=== PATIENT | male | born 1965 | race Caucasian/White ===

== ENCOUNTER 2016-07-09 18:19 | Emergency (ER) | payer BC ==
[~2016-07-09] VITALS: Ht 188 cm; Wt 145.4 kg
[~2016-07-09 18:19] MED LIST: ALDACTONE25 MG PO; AMLODIPINE BESYL5 MG PO; AZILECT1 MG PO; ERGOCALCIF50000 UNIT PO; HYDROCHLOROTHIA25 MG PO; IBUPROFEN200 M1 PO; LISINOPRIL20 MG PO; LORCET 5-325 M1 EACH PO; MIRAPEX0.25 MG PO; NORVASC5 MG PO; PRAMIPEXOLE D0.25 MG PO; PRILOSEC20 MG PO; PRINIVIL20 MG PO; ZESTRIL40 MG PO; ZOFRAN4 MG PO
[2016-07-09] MEDS ORDERED: CARBIDOPA/LEVO1 EACH PO (18:47)
[2016-07-09] MEDS ORDERED: SERTRALINE HCL50 MG PO (18:47)
[2016-07-09] MEDS ORDERED: ALPRAZOLAM0.25 M2 PO (18:48)
[2016-07-09] MEDS ORDERED: OXYCODONE HCL5 MG PO (18:49)
[2016-07-09] MEDS ORDERED: FUROSEMIDE80 MG PO (18:49)
[2016-07-09] MEDS ORDERED: ONDANSETRON HCL4 MG PO (18:52)
[2016-07-09 18:56] LABS: HEMATOCRIT 43.5 % (38.0-50.0); MCH 30.6 PG (29.0-34.0); MCHC 33.3 G/DL (30.0-36.0); MCV 91.8 FL (86-99); MEAN PLAT.VOLUME 8.8 uM^3 (9.0-12.4); PLATELET COUNT 182 K/uL (156-360); RBC DIS.WIDTH-CV 12.7 % (11.8-14.6); RED BLOOD COUNT 4.74 M/uL (4.00-5.50); WHITE BLOOD COUNT 6.2 K/uL (4.1-10.2)
[2016-07-09 19:04] LABS: CHLORIDE 107 mEq/L (99-109); SODIUM 142 mEq/L (136-147)
[2016-07-09 19:06] LABS: GLUCOSE 105 mg/dL (70-99)
[2016-07-09 19:07] LABS: ANION GAP 8 MEQ/L (2-14)
[2016-07-09 19:08] LABS: TOTAL BILIRUBIN 0.4 mg/dL (0.0-1.0)
[2016-07-09 19:09] LABS: ALKALINE PHOSPHATASE 67 IU/L (3-129)
[2016-07-09 19:10] LABS: GFR ESTIMATE (CALCULATED) > 59 mL/min/
[2016-07-09 19:11] LABS: UREA NITROGEN (BUN) 19 mg/dL (9-23)
[2016-07-09 19:18] LABS: TROP-I INTERPRETATION NEGATIVE; TROPONIN-I < 0.01 ng/mL (0.0-0.30)
[2016-07-09] MEDS ORDERED: CATAPRES0.1 MG PO (20:23)
[2016-07-09 20:38] VITALS: BP 152/89
== END 2016-07-09 20:39 | disposition home or self-care (01) ==
LOC: EME 18:19
PROVIDERS: Nurse Practitioner Family
DX: I10 Essential (primary) hypertension (principal); R51 Headache; R11.0 Nausea; R06.02 Shortness of breath; G20 Parkinson's disease
CPT/HCPCS: 71020; 80053; 83880; 84484; 85027; 93005; 99281; 99285

== ENCOUNTER 2016-10-25 13:54 | Emergency (ER) | payer BC ==
[~2016-10-25] VITALS: Ht 188 cm; Wt 134.8 kg
[~2016-10-25 13:54] MED LIST changes: +ALPRAZOLAM0.25 M2 PO; +CARBIDOPA/LEVO1 EACH PO; +CATAPRES0.1 MG PO; +FUROSEMIDE80 MG PO; +ONDANSETRON HCL4 MG PO; +OXYCODONE HCL5 MG PO; +SERTRALINE HCL50 MG PO
[2016-10-25 14:21] LABS: POINT-OF-CARE METER ID UU14100415
[2016-10-25 14:30] LABS: HEMATOCRIT 49.6 % (38.0-50.0); MCH 31.1 PG (29.0-34.0); MCHC 33.9 G/DL (30.0-36.0); MCV 91.7 FL (86-99); MEAN PLAT.VOLUME 9.4 uM^3 (9.0-12.4); PLATELET COUNT 224 K/uL (156-360); RBC DIS.WIDTH-CV 12.7 % (11.8-14.6); RED BLOOD COUNT 5.41 M/uL (4.00-5.50); WHITE BLOOD COUNT 7.1 K/uL (4.1-10.2)
[2016-10-25 14:41] LABS: CHLORIDE 101 mEq/L (99-109); POTASSIUM 3.9 mEq/L (3.7-5.4); SODIUM 142 mEq/L (136-147)
[2016-10-25 14:42] LABS: GLUCOSE 103 mg/dL (70-99)
[2016-10-25 14:44] LABS: ANION GAP 16 MEQ/L (2-14)
[2016-10-25 14:46] LABS: GFR ESTIMATE (CALCULATED) 57 mL/min/
[2016-10-25 14:47] LABS: UREA NITROGEN (BUN) 27 mg/dL (9-23)
[2016-10-25 14:51] LABS: TROP-I INTERPRETATION NEGATIVE; TROPONIN-I < 0.01 ng/mL (0.0-0.30)
[2016-10-25 16:55] VITALS: BP 156/106
== END 2016-10-25 16:57 | disposition home or self-care (01) ==
LOC: EME 13:54
PROVIDERS: Emergency Medicine
DX: E86.0 Dehydration (principal); R55 Syncope and collapse; I10 Essential (primary) hypertension
CPT/HCPCS: 80048; 82948; 84484; 85027; 93005; 99281; 99285; J2405; J7030

== ENCOUNTER 2016-12-07 09:40 | Emergency (ER) | payer BC ==
[~2016-12-07] VITALS: Ht 188 cm; Wt 148.5 kg
[2016-12-07 11:19] LABS: EOSINOPHIL (%) 0.7 % (0-5); EOSINOPHIL COUNT 0.1 K/uL (0-0.3); HEMATOCRIT 42.4 % (38.0-50.0); IMMATURE GRANULOCYTE (%) 0.1 % (0.0-0.7); INSTRUMENT ABS NEUTROPHIL CT 4.4 K/uL; LYMPHOCYTE COUNT 1.8 K/uL (1.0-2.8); MCH 31.4 PG (29.0-34.0); MCHC 33.7 G/DL (30.0-36.0); MCV 93.2 FL (86-99); MEAN PLAT.VOLUME 9.4 uM^3 (9.0-12.4); MONOCYTE (%) 7.3 % (3-12); MONOCYTE COUNT 0.5 K/uL (0-0.8); NEUTROPHIL (%) 65.4 % (45-76); NEUTROPHIL COUNT 4.4 K/uL (1.8-6.4); PLATELET COUNT 208 K/uL (156-360); RBC DIS.WIDTH-CV 12.5 % (11.8-14.6); RBC DIS.WIDTH-SD 43.2 % (39-53); RED BLOOD COUNT 4.55 M/uL (4.00-5.50); WHITE BLOOD COUNT 6.8 K/uL (4.1-10.2)
[2016-12-07 11:30] LABS: CHLORIDE 105 mEq/L (99-109); SODIUM 140 mEq/L (136-147)
[2016-12-07 11:31] LABS: GLUCOSE 96 mg/dL (70-99)
[2016-12-07 11:33] LABS: ANION GAP 9 MEQ/L (2-14)
[2016-12-07 11:35] LABS: GFR ESTIMATE (CALCULATED) > 59 mL/min/
[2016-12-07 11:36] LABS: UREA NITROGEN (BUN) 19 mg/dL (9-23)
[2016-12-07 13:38] VITALS: BP 133/79
== END 2016-12-07 13:43 | disposition home or self-care (01) ==
LOC: EME 09:40
PROVIDERS: Emergency Medicine
DX: I10 Essential (primary) hypertension (principal); G20 Parkinson's disease; Z98.84 Bariatric surgery status
CPT/HCPCS: 80048; 85025; 99281; 99284

== ENCOUNTER 2017-06-15 07:14 | Emergency (ER) | payer OTHER ==
[~2017-06-15] VITALS: Ht 188 cm; Wt 145.1 kg
[2017-06-15 07:38] LABS: BASOPHIL (%) 0.2 % (0-1); EOSINOPHIL (%) 0.1 % (0-5); HEMATOCRIT 51.9 % (38.0-50.0); HEMOGLOBIN 17.8 G/DL (12.5-16.6); IMMATURE GRANULOCYTE (%) 0.4 % (0.0-0.7); LYMPHOCYTE (%) 7.3 % (15-42); MCH 31.9 PG (29.0-34.0); MCHC 34.3 G/DL (30.0-36.0); MONOCYTE (%) 3.8 % (3-12); MONOCYTE COUNT 0.5 K/uL (0-0.8); NEUTROPHIL (%) 88.2 % (45-76); NEUTROPHIL COUNT 12.4 K/uL (1.8-6.4); PLATELET COUNT 250 K/uL (156-360); RBC DIS.WIDTH-CV 12.3 % (11.8-14.6); RBC DIS.WIDTH-SD 42.1 % (39-53); RED BLOOD COUNT 5.58 M/uL (4.00-5.50); WHITE BLOOD COUNT 14.1 K/uL (4.1-10.2)
[2017-06-15 07:50] LABS: ALBUMIN 4.6 g/dL (3.2-4.8); CHLORIDE 104 mEq/L (99-109); POTASSIUM 4.2 mEq/L (3.7-5.4); SODIUM 141 mEq/L (136-147)
[2017-06-15 07:52] LABS: GLUCOSE 172 mg/dL (70-99); TOTAL PROTEIN 8.1 g/dL (6.4-8.3)
[2017-06-15 07:54] LABS: TOTAL BILIRUBIN 0.5 mg/dL (0.0-1.0)
[2017-06-15 07:56] LABS: ALKALINE PHOSPHATASE 89 IU/L (3-129); CREATININE 1.1 mg/dL (0.6-1.3); GFR ESTIMATE (CALCULATED) > 59 mL/min/ (58.99-99999)
[2017-06-15 07:57] LABS: AST (GOT) 33 IU/L (2-34); UREA NITROGEN (BUN) 18 mg/dL (9-23)
[2017-06-15 07:59] LABS: ALT (GPT) 26 IU/L (3-49); LIPASE 22 U/L (1.0-51.0)
[2017-06-15 12:17] VITALS: BP 183/117
== END 2017-06-15 12:18 | disposition short-term general hospital (02) ==
LOC: EME 07:14
PROVIDERS: Emergency Medicine
DX: K56.699 Other intestinal obstruction unspecified as to partial versus complete obstruction (principal); K57.30 Diverticulosis of large intestine without perforation or abscess without bleeding; Z98.84 Bariatric surgery status; K44.9 Diaphragmatic hernia without obstruction or gangrene; Z90.49 Acquired absence of other specified parts of digestive tract; K42.9 Umbilical hernia without obstruction or gangrene; I10 Essential (primary) hypertension
CPT/HCPCS: 74177; 80053; 83690; 85025; 99281; 99285; J2270; J2405; J7030

== ENCOUNTER 2017-06-29 19:09 | Emergency (ER) | payer OTHER ==
[~2017-06-29] VITALS: Ht 188 cm; Wt 145.6 kg
[2017-06-29 20:31] LABS: HEMATOCRIT 45.4 % (38.0-50.0); HEMOGLOBIN 15.6 G/DL (12.5-16.6); MCH 32.2 PG (29.0-34.0); MCHC 34.4 G/DL (30.0-36.0); MCV 93.8 FL (86-99); PLATELET COUNT 278 K/uL (156-360); RBC DIS.WIDTH-CV 12.4 % (11.8-14.6); RBC DIS.WIDTH-SD 42.6 % (39-53); RED BLOOD COUNT 4.84 M/uL (4.00-5.50); WHITE BLOOD COUNT 7.8 K/uL (4.1-10.2)
[2017-06-29 20:38] LABS: CHLORIDE 106 mEq/L (99-109); POTASSIUM 4.1 mEq/L (3.7-5.4); SODIUM 140 mEq/L (136-147)
[2017-06-29 20:40] LABS: GLUCOSE 99 mg/dL (70-99); TOTAL PROTEIN 7.1 g/dL (6.4-8.3)
[2017-06-29 20:42] LABS: TOTAL BILIRUBIN 0.3 mg/dL (0.0-1.0)
[2017-06-29 20:43] LABS: ALKALINE PHOSPHATASE 62 IU/L (3-129)
[2017-06-29 20:44] LABS: GFR ESTIMATE (CALCULATED) > 59 mL/min/ (58.99-99999)
[2017-06-29 20:45] LABS: AST (GOT) 21 IU/L (2-34); UREA NITROGEN (BUN) 17 mg/dL (9-23)
[2017-06-29 20:47] LABS: ALT (GPT) 22 IU/L (3-49)
[2017-06-29 22:51] LABS: APPEARANCE CLEAR ((CLEAR)); BILIRUBIN NEGATIVE; BLOOD NEGATIVE; COLOR YELLOW ((YELLOW)); GLUCOSE (STRIP) NEGATIVE; KETONES NEGATIVE; LEUKOCYTES TRACE; NITRITE NEGATIVE; PROTEIN (STRIP) NEGATIVE; SPECIFIC GRAVITY 1.029 (1.000-1.030)
[2017-06-29 22:55] LABS: BACTERIA RARE /HPF; EPITHELIAL CELLS RARE /HPF; MUCUS TRACE /LPF; RED BLOOD CELLS 0-5 /HPF (0-5); UCUL ADDED? NO; WHITE BLOOD CELLS 0-5 /HPF (0-5)
[2017-06-30 02:38] LABS: LIPASE 27 U/L (1.0-51.0)
[2017-06-30 03:00] VITALS: BP 167/82
== END 2017-06-30 03:00 | disposition home or self-care (01) ==
LOC: EME 19:09
DX: R10.12 Left upper quadrant pain (principal); G20 Parkinson's disease; Z87.19 Personal history of other diseases of the digestive system; Z98.84 Bariatric surgery status; Z90.49 Acquired absence of other specified parts of digestive tract; Z88.8 Allergy status to other drugs, medicaments and biological substances
CPT/HCPCS: 74177; 80053; 81003; 83690; 85027; 99281; 99285; J2270; J7030

== ENCOUNTER 2017-08-22 15:21 | Emergency (ER) | payer OTHER ==
[~2017-08-22] VITALS: Ht 188 cm; Wt 155.9 kg
[2017-08-22 16:42] LABS: BASOPHIL (%) 0.7 % (0-1); EOSINOPHIL COUNT 0.1 K/uL (0-0.3); HEMOGLOBIN 14.4 G/DL (12.5-16.6); IMMATURE GRANULOCYTE (%) 0.2 % (0.0-0.7); LYMPHOCYTE (%) 22.7 % (15-42); LYMPHOCYTE COUNT 1.3 K/uL (1.0-2.8); MCH 31.7 PG (29.0-34.0); MCHC 34.3 G/DL (30.0-36.0); MCV 92.5 FL (86-99); MONOCYTE COUNT 0.5 K/uL (0-0.8); NEUTROPHIL (%) 66.4 % (45-76); NEUTROPHIL COUNT 3.9 K/uL (1.8-6.4); PLATELET COUNT 210 K/uL (156-360); RBC DIS.WIDTH-CV 12.7 % (11.8-14.6); RBC DIS.WIDTH-SD 43.2 % (39-53); RED BLOOD COUNT 4.54 M/uL (4.00-5.50); WHITE BLOOD COUNT 5.9 K/uL (4.1-10.2)
[2017-08-22 16:55] LABS: CHLORIDE 106 mEq/L (99-109); POTASSIUM 3.8 mEq/L (3.7-5.4); SODIUM 142 mEq/L (136-147)
[2017-08-22 16:57] LABS: GLUCOSE 96 mg/dL (70-99)
[2017-08-22 16:58] LABS: TOTAL PROTEIN 6.9 g/dL (6.4-8.3)
[2017-08-22 16:59] LABS: TOTAL BILIRUBIN 0.8 mg/dL (0.0-1.0)
[2017-08-22 17:00] LABS: SERUM ETHYL ALCOHOL < 10 mg/dL
[2017-08-22 17:01] LABS: ALKALINE PHOSPHATASE 69 IU/L (3-129); CREATININE 0.8 mg/dL (0.6-1.3); GFR ESTIMATE (CALCULATED) > 59 mL/min/ (58.99-99999)
[2017-08-22 17:02] LABS: UREA NITROGEN (BUN) 18 mg/dL (9-23)
[2017-08-22 17:03] LABS: AST (GOT) 18 IU/L (2-34)
[2017-08-22 17:04] LABS: ALT (GPT) 14 IU/L (3-49)
[2017-08-22 19:45] VITALS: BP 151/87
[2017-08-23] MEDS ORDERED: KEFLEX500 MG PO (12:37)
== END 2017-08-22 19:46 | disposition home or self-care (01) ==
LOC: EME 15:21
PROVIDERS: Emergency Medicine
DX: F32.9 Major depressive disorder, single episode, unspecified (principal); F43.21 Adjustment disorder with depressed mood; G20 Parkinson's disease; Z98.84 Bariatric surgery status
CPT/HCPCS: 80053; 81003; 85025; 90839; G0480

== ENCOUNTER 2017-08-23 09:47 | Emergency (ER) | payer OTHER ==
[~2017-08-23] VITALS: Ht 188 cm; Wt 152.5 kg
[2017-08-23 10:41] LABS: BASOPHIL (%) 0.7 % (0-1); EOSINOPHIL (%) 1.3 % (0-5); EOSINOPHIL COUNT 0.1 K/uL (0-0.3); HEMATOCRIT 42.2 % (38.0-50.0); HEMOGLOBIN 14.5 G/DL (12.5-16.6); IMMATURE GRANULOCYTE (%) 0.3 % (0.0-0.7); LYMPHOCYTE (%) 20.6 % (15-42); LYMPHOCYTE COUNT 1.3 K/uL (1.0-2.8); MCH 31.9 PG (29.0-34.0); MCHC 34.4 G/DL (30.0-36.0); MONOCYTE (%) 10.2 % (3-12); MONOCYTE COUNT 0.6 K/uL (0-0.8); NEUTROPHIL (%) 66.9 % (45-76); NEUTROPHIL COUNT 4.1 K/uL (1.8-6.4); PLATELET COUNT 193 K/uL (156-360); RBC DIS.WIDTH-CV 12.8 % (11.8-14.6); RBC DIS.WIDTH-SD 43.8 % (39-53); RED BLOOD COUNT 4.54 M/uL (4.00-5.50); WHITE BLOOD COUNT 6.1 K/uL (4.1-10.2)
[2017-08-23 10:47] LABS: INTER. NORMALIZED RATIO 1.2
[2017-08-23 10:49] LABS: PTT 31.1 SEC (25-37)
[2017-08-23 10:51] LABS: CHLORIDE 105 mEq/L (99-109); POTASSIUM 3.6 mEq/L (3.7-5.4); SODIUM 141 mEq/L (136-147)
[2017-08-23 10:52] LABS: MAGNESIUM 2.2 mg/dL (1.3-2.7)
[2017-08-23 10:53] LABS: GLUCOSE 98 mg/dL (70-99)
[2017-08-23 10:57] LABS: CREATININE 0.8 mg/dL (0.6-1.3); GFR ESTIMATE (CALCULATED) > 59 mL/min/ (58.99-99999)
[2017-08-23 10:58] LABS: UREA NITROGEN (BUN) 20 mg/dL (9-23)
[2017-08-23 11:02] LABS: TROP-I INTERPRETATION NEGATIVE; TROPONIN-I 0.03 ng/mL (0.0-0.30)
[2017-08-23 11:36] LABS: APPEARANCE CLEAR ((CLEAR)); BILIRUBIN NEGATIVE; BLOOD NEGATIVE; COLOR YELLOW ((YELLOW)); GLUCOSE (STRIP) NEGATIVE; KETONES NEGATIVE; LEUKOCYTES MODERATE; NITRITE NEGATIVE; PROTEIN (STRIP) 30; SPECIFIC GRAVITY 1.019 (1.000-1.030); UROBILINOGEN 0.2 MG/DL (0.2-1.0)
[2017-08-23 11:39] LABS: BACTERIA RARE /HPF; EPITHELIAL CELLS RARE /HPF; MUCUS 1+ /LPF; UCUL ADDED? YES
[2017-08-23] MEDS ORDERED: KEFLEX500 MG PO (12:37)
[2017-08-23 12:44] VITALS: BP 150/99
== END 2017-08-23 12:45 | disposition home or self-care (01) ==
LOC: EME 09:47
PROVIDERS: Emergency Medicine
DX: N39.0 Urinary tract infection, site not specified (principal); I10 Essential (primary) hypertension; I25.10 Atherosclerotic heart disease of native coronary artery without angina pectoris; G20 Parkinson's disease; Z98.84 Bariatric surgery status; E66.01 Morbid (severe) obesity due to excess calories; Z68.41 Body mass index [BMI] 40.0-44.9, adult
CPT/HCPCS: 71045; 80048; 81003; 83735; 84484; 85025; 85610; 85730; 87086; 93005; 99281; 99284

== ENCOUNTER 2017-09-04 15:02 | Observation (INO) | payer OTHER ==
[~2017-09-04] VITALS: Ht 188 cm; Wt 147.4 kg
[~2017-09-04 15:02] MED LIST changes: +KEFLEX500 MG PO
[2017-09-04 15:54] LABS: HEMATOCRIT 44.8 % (38.0-50.0); HEMOGLOBIN 15.4 G/DL (12.5-16.6); MCH 32.1 PG (29.0-34.0); MCHC 34.4 G/DL (30.0-36.0); MCV 93.3 FL (86-99); PLATELET COUNT 198 K/uL (156-360); RBC DIS.WIDTH-CV 12.6 % (11.8-14.6); RBC DIS.WIDTH-SD 43.5 % (39-53); WHITE BLOOD COUNT 6.9 K/uL (4.1-10.2)
[2017-09-04 16:24] LABS: CHLORIDE 105 MEQ/L (99-109); POTASSIUM 4.1 MEQ/L (3.7-5.4); SODIUM 141 MEQ/L (136-147)
[2017-09-04 16:29] LABS: CREATININE 0.8 MG/DL (0.6-1.3); GFR ESTIMATE (CALCULATED) > 59 mL/min/ (58.99-99999); GLUCOSE 95 mg/dL (70-99); UREA NITROGEN (BUN) 22 mg/dL (9-23)
[2017-09-04 16:37] LABS: TROP-I INTERPRETATION NEGATIVE; TROPONIN-I < 0.01 ng/mL (0.0-0.30)
[2017-09-04 19:08] LABS: APPEARANCE SL.HAZY ((CLEAR)); BILIRUBIN NEGATIVE; BLOOD SMALL; COLOR YELLOW ((YELLOW)); GLUCOSE (STRIP) NEGATIVE; KETONES 5; LEUKOCYTES NEGATIVE; NITRITE NEGATIVE; PROTEIN (STRIP) 100; SPECIFIC GRAVITY 1.029 (1.000-1.030)
[2017-09-04 19:21] LABS: AMPHETAMINE NEGATIVE (500 ng/mL); BARBITURATES NEGATIVE (200 ng/mL); BENZODIAZEPINES NEGATIVE (150 ng/mL); BUPRENORPHINE NEGATIVE (10 ng/mL); COCAINE NEGATIVE (150 ng/mL); METHADONE NEGATIVE (200 ng/mL); METHAMPHETAMINE NEGATIVE (500 ng/mL); OPIATES (MORPHINE) NEGATIVE (100 ng/mL); OXYCODONE NEGATIVE (100 ng/mL); PHENCYCLIDINE NEGATIVE (25 ng/mL); PROPOXYPHENE NEGATIVE (300 ng/mL); THC CANNABINOIDS NEGATIVE (50 ng/mL); TRICYCLIC ANTIDEPRESSANTS NEGATIVE (300 ng/mL)
[2017-09-04 19:25] LABS: BACTERIA NONE SEEN /HPF; EPITHELIAL CELLS RARE /HPF; MUCUS 2+ /LPF; RED BLOOD CELLS 15-20 /HPF (0-5); UCUL ADDED? NO; WHITE BLOOD CELLS 0-5 /HPF (0-5)
[2017-09-04] MEDS ORDERED: SINEMET 10-1001 EACH PO (20:15)
[2017-09-04] MEDS ORDERED: ADVIL,NUPRIN,M200 MG PO (20:16)
[2017-09-05 00:40] LABS: TROP-I INTERPRETATION NEGATIVE; TROPONIN-I 0.02 ng/mL (0.0-0.30)
[2017-09-05 02:24] VITALS: BP 184/81
[2017-09-05 05:44] LABS: TROP-I INTERPRETATION NEGATIVE; TROPONIN-I < 0.01 ng/mL (0.0-0.30)
[2017-09-05 05:58] LABS: CHLORIDE 103 MEQ/L (99-109); CREATININE 0.8 MG/DL (0.6-1.3); GFR ESTIMATE (CALCULATED) > 59 mL/min/ (58.99-99999); GLUCOSE 84 mg/dL (70-99); POTASSIUM 3.5 MEQ/L (3.7-5.4); SODIUM 140 MEQ/L (136-147); UREA NITROGEN (BUN) 22 mg/dL (9-23)
[2017-09-05 06:08] LABS: HEMATOCRIT 43.8 % (38.0-50.0); HEMOGLOBIN 14.3 G/DL (12.5-16.6); MCH 30.6 PG (29.0-34.0); MCHC 32.6 G/DL (30.0-36.0); MCV 93.8 FL (86-99); PLATELET COUNT 198 K/uL (156-360); RBC DIS.WIDTH-CV 12.7 % (11.8-14.6); RBC DIS.WIDTH-SD 43.8 % (39-53); RED BLOOD COUNT 4.67 M/uL (4.00-5.50); WHITE BLOOD COUNT 6.3 K/uL (4.1-10.2)
[2017-09-05 08:35] VITALS: BP 156/91
[2017-09-05] MEDS ORDERED: APRESOLINE10 MG PO (10:35)
[2017-09-05 11:14] VITALS: BP 179/93
[2017-09-05 16:31] VITALS: BP 172/94
[2017-09-05 19:20] VITALS: BP 167/89
[2017-09-05 23:56] VITALS: BP 165/80
[2017-09-06 03:24] VITALS: BP 139/94
[2017-09-06 07:10] VITALS: BP 184/97
[2017-09-06 12:23] VITALS: BP 162/104
== END 2017-09-06 15:24 ==
LOC: EME 15:02 → EDOF 21:52 → 4SOUTH 21:52 → ENRESERV 21:58 → 4SOUTH 09-05 02:12
PROVIDERS: Emergency Medicine; Hospitalist
DX: I10 Essential (primary) hypertension (principal); R60.0 Localized edema; R26.2 Difficulty in walking, not elsewhere classified; G20 Parkinson's disease; I49.3 Ventricular premature depolarization; R06.02 Shortness of breath; N39.0 Urinary tract infection, site not specified; Z98.84 Bariatric surgery status; Z90.49 Acquired absence of other specified parts of digestive tract; Z80.1 Family history of malignant neoplasm of trachea, bronchus and lung; Z83.3 Family history of diabetes mellitus; Z82.49 Family history of ischemic heart disease and other diseases of the circulatory system
CPT/HCPCS: 71046; 80048; 81003; 84484; 85027; 93005; 93970; 97530 GP; 99281; 99285; G0378; G8978 GP CJ; G8979 GP CI; G8980 CJ; G8987 GO CI; G8987 GO CJ; G8988 CI; G8989 CJ; J0360; J1650

== ENCOUNTER 2017-10-02 16:09 | Emergency (ER) | payer OTHER ==
[~2017-10-02] VITALS: Ht 188 cm; Wt 139.6 kg
[~2017-10-02 16:09] MED LIST changes: +ADVIL,NUPRIN,M200 MG PO; +APRESOLINE10 MG PO; +SINEMET 10-1001 EACH PO
[2017-10-02 17:17] LABS: APPEARANCE CLEAR ((CLEAR)); BILIRUBIN NEGATIVE; BLOOD NEGATIVE; COLOR YELLOW ((YELLOW)); GLUCOSE (STRIP) NEGATIVE; KETONES NEGATIVE; LEUKOCYTES MODERATE; NITRITE NEGATIVE; PROTEIN (STRIP) NEGATIVE; SPECIFIC GRAVITY 1.025 (1.000-1.030)
[2017-10-02 17:27] LABS: HEMATOCRIT 45.3 % (38.0-50.0); HEMOGLOBIN 15.7 G/DL (12.5-16.6); MCHC 34.7 G/DL (30.0-36.0); MCV 92.3 FL (86-99); PLATELET COUNT 198 K/uL (156-360); RBC DIS.WIDTH-CV 12.2 % (11.8-14.6); RBC DIS.WIDTH-SD 41.6 % (39-53); RED BLOOD COUNT 4.91 M/uL (4.00-5.50); WHITE BLOOD COUNT 6.1 K/uL (4.1-10.2)
[2017-10-02 17:35] LABS: CHLORIDE 105 mEq/L (99-109); SODIUM 140 mEq/L (136-147)
[2017-10-02 17:37] LABS: GLUCOSE 89 mg/dL (70-99)
[2017-10-02 17:41] LABS: CREATININE 0.8 mg/dL (0.6-1.3); GFR ESTIMATE (CALCULATED) > 59 mL/min/ (58.99-99999)
[2017-10-02 17:42] LABS: UREA NITROGEN (BUN) 19 mg/dL (9-23)
[2017-10-02 18:07] LABS: BACTERIA 1+ /HPF; EPITHELIAL CELLS 2+ /HPF; MUCUS 2+ /LPF; RED BLOOD CELLS 0-5 /HPF (0-5); UCUL ADDED? YES
[2017-10-02] MEDS ORDERED: CIPRO500 MG PO (18:17)
[2017-10-02 18:44] VITALS: BP 135/92
== END 2017-10-02 18:45 | disposition home or self-care (01) ==
LOC: EME 16:09
PROVIDERS: Nurse Practitioner Family
DX: N39.0 Urinary tract infection, site not specified (principal); I10 Essential (primary) hypertension; G20 Parkinson's disease; R53.1 Weakness; Z98.84 Bariatric surgery status
CPT/HCPCS: 71046; 80048; 81003; 83605; 85027; 87040; 87086; 93005; 99281; 99284

== ENCOUNTER 2017-10-05 20:37 | Emergency (ER) | payer OTHER ==
[~2017-10-05] VITALS: Ht 188 cm; Wt 141.2 kg
[~2017-10-05 20:37] MED LIST changes: +CIPRO500 MG PO
[2017-10-05 22:29] LABS: HEMATOCRIT 44.1 % (38.0-50.0); HEMOGLOBIN 15.2 G/DL (12.5-16.6); MCH 32.3 PG (29.0-34.0); MCHC 34.5 G/DL (30.0-36.0); MCV 93.8 FL (86-99); PLATELET COUNT 221 K/uL (156-360); RBC DIS.WIDTH-CV 12.2 % (11.8-14.6); RBC DIS.WIDTH-SD 42.5 % (39-53); WHITE BLOOD COUNT 6.9 K/uL (4.1-10.2)
[2017-10-05 22:36] LABS: INTER. NORMALIZED RATIO 1.1
[2017-10-05 22:38] LABS: ALBUMIN 4.3 g/dL (3.2-4.8); CHLORIDE 109 mEq/L (99-109); POTASSIUM 3.8 mEq/L (3.7-5.4); SODIUM 145 mEq/L (136-147)
[2017-10-05 22:41] LABS: GLUCOSE 93 mg/dL (70-99); TOTAL PROTEIN 7.5 g/dL (6.4-8.3)
[2017-10-05 22:42] LABS: TOTAL BILIRUBIN 0.4 mg/dL (0.0-1.0)
[2017-10-05 22:44] LABS: ALKALINE PHOSPHATASE 69 IU/L (3-129); GFR ESTIMATE (CALCULATED) > 59 mL/min/ (58.99-99999)
[2017-10-05 22:45] LABS: UREA NITROGEN (BUN) 23 mg/dL (9-23)
[2017-10-05 22:46] LABS: AST (GOT) 19 IU/L (2-34)
[2017-10-05 22:47] LABS: ALT (GPT) 19 IU/L (3-49)
[2017-10-05 23:36] VITALS: BP 185/101
== END 2017-10-05 23:37 | disposition home or self-care (01) ==
LOC: EME 20:37
PROVIDERS: Physician Assistant
DX: R25.3 Fasciculation (principal); H02.401 Unspecified ptosis of right eyelid; G20 Parkinson's disease; Z98.84 Bariatric surgery status; Z87.2 Personal history of diseases of the skin and subcutaneous tissue; Z90.49 Acquired absence of other specified parts of digestive tract; Z98.890 Other specified postprocedural states; Z88.8 Allergy status to other drugs, medicaments and biological substances
CPT/HCPCS: 70450; 80053; 85027; 85610; 99281; 99284

== ENCOUNTER 2017-10-12 19:07 | Observation (INO) | payer OTHER ==
[~2017-10-12] VITALS: Ht 188 cm; Wt 141.1 kg
[~2017-10-12 19:07] MED LIST changes: -PRINIVIL20 MG PO; +PRINZIDE 20-121 EACH PO
[2017-10-12 21:52] LABS: HEMOGLOBIN 15.7 G/DL (12.5-16.6); MCH 31.7 PG (29.0-34.0); MCHC 34.1 G/DL (30.0-36.0); MCV 92.9 FL (86-99); PLATELET COUNT 235 K/uL (156-360); RBC DIS.WIDTH-CV 12.4 % (11.8-14.6); RBC DIS.WIDTH-SD 42.5 % (39-53); RED BLOOD COUNT 4.95 M/uL (4.00-5.50)
[2017-10-12 21:56] LABS: APPEARANCE CLEAR ((CLEAR)); BILIRUBIN NEGATIVE; BLOOD NEGATIVE; COLOR YELLOW ((YELLOW)); GLUCOSE (STRIP) NEGATIVE; KETONES 5; LEUKOCYTES NEGATIVE; NITRITE NEGATIVE; PROTEIN (STRIP) NEGATIVE; SPECIFIC GRAVITY 1.025 (1.000-1.030); UROBILINOGEN 0.2 MG/DL (0.2-1.0)
[2017-10-12 22:16] LABS: ALBUMIN 4.3 g/dL (3.2-4.8); CHLORIDE 105 mEq/L (99-109); POTASSIUM 3.9 mEq/L (3.7-5.4); SODIUM 143 mEq/L (136-147)
[2017-10-12 22:18] LABS: GLUCOSE 98 mg/dL (70-99); TOTAL PROTEIN 7.4 g/dL (6.4-8.3)
[2017-10-12 22:21] LABS: ALKALINE PHOSPHATASE 68 IU/L (3-129)
[2017-10-12 22:22] LABS: CREATININE 1.1 mg/dL (0.6-1.3); GFR ESTIMATE (CALCULATED) > 59 mL/min/ (58.99-99999); TOTAL BILIRUBIN 0.3 mg/dL (0.0-1.0)
[2017-10-12 22:23] LABS: AST (GOT) 18 IU/L (2-34); UREA NITROGEN (BUN) 30 mg/dL (9-23)
[2017-10-12 22:25] LABS: ALT (GPT) 10 IU/L (3-49)
[2017-10-12] MEDS ORDERED: SKELAXIN800 MG PO (22:52)
[2017-10-13 02:26] VITALS: BP 161/100
[2017-10-13 03:39] VITALS: BP 143/77
[2017-10-13 07:22] VITALS: BP 143/69
[2017-10-13 07:42] VITALS: BP 123/77
[2017-10-13 12:03] VITALS: BP 154/85
[2017-10-13] MEDS ORDERED: LOVENOX40 MG/0.4 SC (15:25)
== END 2017-10-13 16:47 ==
LOC: EME 19:07 → EDOF 10-13 00:14 → ENRESERV 10-13 00:16 → 4SOUTH 10-13 02:15
PROVIDERS: Emergency Medicine
DX: G20 Parkinson's disease (principal); R26.89 Other abnormalities of gait and mobility; I10 Essential (primary) hypertension; K21.9 Gastro-esophageal reflux disease without esophagitis; F32.9 Major depressive disorder, single episode, unspecified; E66.01 Morbid (severe) obesity due to excess calories; Z68.39 Body mass index [BMI] 39.0-39.9, adult; Z87.19 Personal history of other diseases of the digestive system; Z98.84 Bariatric surgery status; I87.8 Other specified disorders of veins; G89.29 Other chronic pain; M54.5 Low back pain; Z90.49 Acquired absence of other specified parts of digestive tract; Z83.3 Family history of diabetes mellitus; Z82.49 Family history of ischemic heart disease and other diseases of the circulatory system; Z80.1 Family history of malignant neoplasm of trachea, bronchus and lung; Z88.8 Allergy status to other drugs, medicaments and biological substances
CPT/HCPCS: 80053; 81003; 83605; 85027; 87040; 87086; 93005; 99281; 99285; G0378; G8978 GP CJ; G8979 GP CI; G8980 CJ; G8987 CK; G8988 GO CJ; G8989 GO CK; J1650; J7030